=== PATIENT | female | born 1995 | race American Indian/Alaskan Native ===

== ENCOUNTER 2017-06-17 20:10 | Emergency (ER) | payer MEDICAID ==
[2017-06-17 20:25] VITALS: BP 115/60
[2017-06-17 20:53] LABS: HCG Qualitative,Urine Positive (Negative)
[2017-06-17 20:55] LABS: Bacteria,Urine 3+ /HPF (Negative); Bilirubin,Urine NEG (Negative); Blood,Urine MOD (Negative); Color,Urine Yellow (Yellow); Mucus,Urine 1+ /HPF; Nitrite,Urine NEG (Negative); WBC,Urine > 182.0 /HPF (0.0-6.0)
== END 2017-06-18 02:33 | disposition left against medical advice (07) ==
LOC: ED 20:10
DX: R51 Headache (principal); R05 Cough; Z53.21 Procedure and treatment not carried out due to patient leaving prior to being seen by health care provider
CPT/HCPCS: 81001; 81025

== ENCOUNTER 2017-11-06 14:11 | Emergency (ER) | payer OTHER, MEDICAID ==
[2017-11-06 14:21] VITALS: BP 106/72
[2017-11-06] MEDS ORDERED: MOTRIN PO ONE (15:23)
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
[2017-11-06 16:33] LABS: HCG Qualitative,Urine Negative (Negative)
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
== END 2017-11-06 19:20 | disposition home or self-care (01) ==
LOC: ED 14:11
DX: S09.90XA Unspecified injury of head, initial encounter (principal); G44.319 Acute post-traumatic headache, not intractable; M54.5 Low back pain; M54.6 Pain in thoracic spine; V89.2XXA Person injured in unspecified motor-vehicle accident, traffic, initial encounter; Y93.89 Activity, other specified; Y92.89 Other specified places as the place of occurrence of the external cause; Y99.8 Other external cause status
CPT/HCPCS: 70450; 72072; 72100; 72125; 81025; 99285